=== PATIENT | female | born 1990 | race Caucasian/White ===

== ENCOUNTER 2019-05-18 18:37 | Observation (INO) ==
[2019-05-18] MEDS ORDERED: ZOFRAN IV ONE (18:47)
--- NOTE | 2019-05-18 18:59 | PROVIDER DOCUMENTATION ---
HPI-Female /OB/Breast - General Chief Complaint: Female Stated Complaint: BLEEDING--12 WEEKS Time Seen by Provider: 05/18/19 18:45 Source: reports: patient, family Allergies/Adverse Reactions: Patient Allergies Allergy/AdvReac Type Severity Reaction Status Date / Time No Known Allergies Allergy Verified 03/10/19 21:02 Home Medications: Home Medication List Medication Instructions Recorded Confirmed Last Taken Type Hydralazine [Apresoline] 10 mg PO TID #21 tablet 12/09/17 Unknown Rx Ondansetron Odt [Zofran 8Mg Odt] 8 mg PO Q8H PRN PRN #10 tablet 12/09/17 Unknown Rx Ketorolac [Toradol] 10 mg PO Q6H PRN PRN #14 tab 03/10/19 Unknown Rx Ketorolac [Toradol] 10 mg PO Q6H PRN PRN #14 tab 05/18/19 Unknown Rx - History of Present Illness-Female /OB Nature of Presenting Problem: [id number] presents to the ER with vaginal bleeding. She reports she is approx 12 weeks . She reports she has had moderate cramping all day, then just [employer] ARCHITECT, she began "gushing blood". She reports heavy bleeding, tissue and blots. Patient has a bloody towel tucked between her legs with a moderate amount of bright red blood noted. at the bedside. She is upset and vomiting. Does patient report she is ?: Yes Quality of Pain: reports: cramping Onset/Duration: reports: this morning Related Symptoms: reports: vaginal bleeding Leakage of Fluid: heavy gush Review of Systems - Adult - REVIEW OF SYSTEMS - ADULT Constitutional: reports: see HPI. denies: chills, fever Eyes: reports: no symptoms reported Ears, Nose, Mouth & Throat: reports: no symptoms reported Cardiovascular: reports: no symptoms reported Respiratory: reports: no symptoms reported Gastrointestinal: reports: see HPI, abdominal pain, nausea Genitourinary: reports: see HPI Musculoskeletal: reports: no symptoms reported Integumentary: reports: no symptoms reported Neurological: reports: no symptoms reported Psychiatric: reports: no symptoms reported Endocrine: reports: no symptoms reported Hematologic/Lymphatic: reports: no symptoms reported Allergic/Immunologic: reports: no symptoms reported All Other Systems: Reviewed and Negative Past History - Adult - PAST MEDICAL HISTORY-ADULT Review of Records: reports: Old Records Reviewed, Nursing Assessment Review, Medications Reviewed, Social history reviewed & non-contributory. Major Childhood Illnesses: reports: denies history Cardiovascular: reports: denies history Respiratory: reports: denies history Gastrointestinal: reports: denies history Obstetrical/Gynecological: reports: denies history Genitourinary: reports: denies history Musculoskeletal: reports: denies history Neurological: reports: denies history Psychiatric: reports: denies history Endocrine/Immune: reports: denies history Other Conditions: reports: denies history - PRIOR SURGERIES/PROCEDURES Surgical/Procedure History: reports: reviewed, not pertinent - IMMUNIZATION STATUS Childhood Immunizations: See Nurse Assessment Flu Vaccine: See Nurse Assessment - FAMILY HISTORY Family History: reviewed, not pertinent - SOCIAL HISTORY Smoking: denies Substance Use: denies Living Situation: family Physical Exam-General - PHYSICAL EXAM-ADULT Initial Vital Signs Reviewed: Yes - CONSTITUTIONAL General Appearance: alert, moderate distress - HEAD, EARS, NOSE, MOUTH & THROAT HENMT: moist mucous membranes, TMs normal - NECK Neck: full range of motion, supple - GASTROINTESTINAL (ABDOMEN) Abdominal Exam: non tender, soft - GENITOURINARY Female Genitalia/Pelvic Exam: active bleeding, blood - MUSCULOSKELETAL Extremity: normal gait - SKIN Integumentary: warm/dry - PSYCHIATRIC Psych/Mental Status: anxious, depressed affect, tearful Progress - PLAN OF CARE/RESULTS Progress/Plan/Lab Results: Vital Signs - 8 hr 05/18/19 18:40 Temperature 97.8 F Pulse Rate 89 Respiratory Rate 18 Blood Pressure 92/60 O2 Sat by Pulse Oximetry 98 Laboratory Results - last 24 hr 05/18/19 05/18/19 05/18/19 20:23 20:23 20:23 WBC 17.70 H RBC 3.98 L Hgb 11.2 L Hct 35.1 L MCV 88.2 MCH 28.1 MCHC 31.9 L RDW Std Deviation 13.3 Plt Count 264 MPV 10.3 Immature Gran % (Auto) 0.3 Neut % (Auto) 83.1 H Lymph % (Auto) 12.2 L Loup % (Auto) 4.0 Eos % (Auto) 0.2 Baso % (Auto) 0.2 Immature Gran # (Auto) 0.05 H Neut # (Auto) 14.73 H Lymph # (Auto) 2.16 Loup # (Auto) 0.70 H Eos # (Auto) 0.03 Baso # (Auto) 0.03 Sodium 141 Potassium 4.0 Chloride 104 Carbon Dioxide 23 L Anion Gap 14 BUN 7 L Creatinine 0.6 Estimated GFR/1.73 m2 > 60 BUN/Creatinine Ratio 12 Glucose 135 H Calculated Osmolality 281 Calcium 8.1 L Total Bilirubin 0.22 AST 12 ALT 10 Alkaline Phosphatase 52 Total Protein 6.2 L Albumin 3.6 Globulin 2.6 Albumin/Globulin Ratio 1.4 Ser , Semi-Qnt 1317.0 Blood Type Antibody Screen 05/18/19 20:23 WBC RBC Hgb Hct MCV MCH MCHC RDW Std Deviation Plt Count MPV Immature Gran % (Auto) Neut % (Auto) Lymph % (Auto) Loup % (Auto) Eos % (Auto) Baso % (Auto) Immature Gran # (Auto) Neut # (Auto) Lymph # (Auto) Loup # (Auto) Eos # (Auto) Baso # (Auto) Sodium Potassium Chloride Carbon Dioxide Anion Gap BUN Creatinine Estimated GFR/1.73 m2 BUN/Creatinine Ratio Glucose Calculated Osmolality Calcium Total Bilirubin AST ALT Alkaline Phosphatase Total Protein Albumin Globulin Albumin/Globulin Ratio Ser , Semi-Qnt Blood Type A POSITIVE Antibody Screen NEGATIVE Orders Category Date Time Status Saline Loc NOW Care 05/18/19 18:46 Active US TRANSVAGINAL OB [US] Stat Exams 05/18/19 18:46 Completed CBC WITH ELECTRONIC DIFF [HEME] Stat Lab 05/18/19 20:23 Completed CMP [COMPREHENSIVE METABOLIC PANEL] [CHEM] Stat Lab 05/18/19 20:23 Completed CYTOLOGY NON VETERINARY LABORATORY TECHNICIAN BODY FLUID Stat Lab 05/18/19 19:56 Ordered QUANT TEST Stat Lab 05/18/19 20:23 Completed TYPE & SCREEN [BBK] Stat Lab 05/18/19 20:23 Completed 0.9% Sodium Chloride Inj [Ns] 1,000 ml Med 05/18/19 20:18 Discontinued IV 999 mls/hr Hydrocodone/APAP 10 mg/325 mg [Stirum-10] Med 05/18/19 21:24 Discontinued 1 each PO NOW ONE Morphine Med 05/18/19 20:18 Discontinued 4 mg IV NOW ONE Ondansetron [Zofran] Med 05/18/19 18:47 Discontinued 4 mg IV NOW ONE I have spoken to Dr Schwab in regards to POC. He agrees with POC. VSS. H/H is stable. Pain is manageable per the patient. Patient reports she has an appt in the morning with her OB. She understands to keep the appt and follow up. patient and verbalize an understanding of POC and agree with treatment rendered here today. Result Diagrams: 05/18/19 20:23 05/18/19 20:23 - REASSESSMENT Reassessment #1 Time Reassessed: 20:19 Status: unchanged (US reports large amount of blood and tissue came out during exam. once patient was back in room, she c/o abd cramping.) Reassessment #2 Time Reassessed: 21:34 Status: improving (bleeding has slowed, pt is still experiencing abdominal cramping. meds given.) - ULTRASOUND (By Radiology) 1 US Study: Transvaginal Impression: Abnormal ( COMMENT: The endometrial stripe is somewhat inhomogeneous and thickened measuring 2.5 x 3.2 cm. The possibility of retained membranes cannot be excluded. No viable intrauterine gestation is demonstrated. There is no evidence of free fluid. The ovaries are not enlarged. There are no previous studies. IMPRESSION: No evidence of viable gestation. The possibility of a spontaneous in progress is suggested.) Departure - Departure Date of Disposition Decision: 05/18/19 Time of Disposition Decision: 21:37 DIAGNOSIS: Miscarriage Disposition: HOME 01 Certified Medical Emergency: Emergent Condition: Stable Additional Instructions: Follow up with OB in the morning. Return to the ER for any dizziness, SOB, CP, Increase in bleeding. ED Follow Up Instructions: You have been treated by a care provider in the Emergency Department. These instructions are being provided to you so you can have an understanding of how to care for yourself upon discharge. Upon discharge from the Emergency Department, you are responsible for making arrangements for follow-up care by a physician of your choice. Take all prescribed medications as directed. Return to the Emergency Department immediately for any new or worsening symptoms. You may call the Physician Referral phone number at [phone] to obtain a list of Physicians who are taking new patients. Prescriptions: Ketorolac [Toradol] 10 mg PO Q6H PRN PRN #14 tab PRN Reason: Pain Referrals and Follow-Ups: Urmila Baker MD [Primary Care Provider] - Work Excuses: Return to School/Parent Work Discharge Education: Miscarriage - Critical Care Note This patient required my direct & personal management of CC.: No Attestation - Physician/ DONTA Attestation Patient care was provided by Advanced Practice Provider:: Yes Advanced Practice Provider:: Juan Alberto Goff Advanced Practice Provider documentation review:: The Mid-level provider documentation, treatment plan and medical decision making was reviewed by the physician who agrees with all treatment and medical decision making by the MLP. The physician spent face to face time with patient:: No Advanced Practice Provider documentation review:: Supervising physician onsite and consulted in the evaluation and care of this patient. The physician did not have a face to face encounter with the patient.
--- NOTE | 2019-05-18 20:06 | Diag Imaging Result Doc PS360 ---
EXAM: US TRANSVAGINAL OB 05/18/2019 HISTORY: heavy vaginal bleeding/cramping TECHNIQUE: Transabdominal and endovaginal scan COMMENT: The endometrial stripe is somewhat inhomogeneous and thickened measuring 2.5 x 3.2 cm. The possibility of retained membranes cannot be excluded. No viable intrauterine gestation is demonstrated. There is no evidence of free fluid. The ovaries are not enlarged. There are no previous studies. IMPRESSION: No evidence of viable gestation. The possibility of a spontaneous in progress is suggested. Electronically signed by Oscar Chacon 05/18/2019 8:04 PM
[2019-05-18] MEDS ORDERED: NS 1,000 ML IV ONE ×2 (20:18→22:37)
[2019-05-18] MEDS ORDERED: MORPHINE IV ONE (20:18)
[2019-05-18 20:49] LABS: BASO# 0.03 X1000 (0.0-0.2); BASO% 0.2 % (0.0-0.8); EOS# 0.03 X1000 (0.0-0.7); EOS% 0.2 % (0.0-10.0); HEMATOCRIT 35.1 % (37.0-47.0); HEMOGLOBIN 11.2 g/dL (12.0-16.0); IMM GRAN# 0.05 X1000 (0.0-0.04); IMM GRAN% 0.3 % (0.0-0.5); LYMPH# 2.16 X1000 (1.2-3.4); LYMPH% 12.2 % (20.5-51.1); MCH 28.1 PG (27-31); MCHC 31.9 g/dL (33-37); MCV 88.2 FL (81-99); MPV 10.3 FL (7.4-10.4); NEUT# 14.73 X1000 (1.4-6.5); NEUT% 83.1 % (42.2-75.2); PLT 264 X1000 (130-400); RBC 3.98 XMIL (4.2-5.4); RDW 13.3 % (11.5-14.5)
[2019-05-18 21:16] LABS: AGAP 14; ALB/GLOB RATIO 1.4; ALBUMIN 3.6 g/dL (3.5-5.0); ALKALINE PHOSPHATASE 52 U/L (32-104); BUN 7 mg/dL (8-22); CALCIUM 8.1 mg/dL (8.8-10.2); CHLORIDE 104 mmol/L (98-107); COSMO 281; CREATININE 0.6 mg/dL (0.5-0.9); ESTIMATED GFR > 60; GLUCOSE 135 mg/dL (70-104); GOT 12 U/L (10-30); GPT 10 U/L (10-36); SODIUM 141 mmol/L (136-145); TCO2 23 mmol/L (25-35); TOTAL BILIRUBIN 0.22 mg/dL (0.20-1.00); TOTAL PROTEIN 6.2 g/dL (6.3-8.3)
[2019-05-18] MEDS ORDERED: NORCO-10 PO ONE ×2 (21:24→21:40)
[2019-05-18] MEDS ORDERED: CYTOTEC PO ONE (22:36)
[2019-05-18 23:05] LABS: HEMATOCRIT 27.5 % (37.0-47.0); HEMOGLOBIN 8.6 g/dL (12.0-16.0)
[2019-05-18] MEDS ORDERED: BENADRYL IV ONE (23:30)
[2019-05-18] MEDS ORDERED: OFIRMEV 1000 MG/ISOTONIC SOLN 1,000 MG/100 ML BOTTLE IV ONE (23:31)
[2019-05-19] MEDS ORDERED: DIPRIVAN 1% ONE (00:13)
[2019-05-19] MEDS ORDERED: XYLOCAINE-MPF 2% ONE (00:15)
[2019-05-19] MEDS ORDERED: QUELICIN (DOSE) ONE (00:15)
[2019-05-19] MEDS ORDERED: METHERGINE ONE (00:42)
[2019-05-19] MEDS ORDERED: ZOFRAN ONE (00:50)
[2019-05-19] MEDS ORDERED: DECADRON ONE (00:50)
[2019-05-19] MEDS ORDERED: DOXYCYCLINE 200 MG in NS 250 ML IV ONE (01:00)
[2019-05-19] MEDS ORDERED: SILVER NITRATE APPLICATOR ONE ×2 (01:05→01:13)
[2019-05-19] MEDS ORDERED: NEO-SYNEPHRINE ONE (01:16)
[2019-05-19] MEDS ORDERED: SODIUM CHLORIDE 0.9% 10 ML ONE (01:16)
[2019-05-19] MEDS ORDERED: CHLORASEPTIC SPRAY MT ONE (02:00)
[2019-05-19] MEDS ORDERED: NORCO-5 PO PRN (02:51)
[2019-05-19] MEDS ORDERED: ZOFRAN IV PRN (02:51)
[2019-05-19] MEDS ORDERED: MOTRIN PO PRN (02:52)
--- NOTE | 2019-05-19 03:50 | HISTORY AND PHYSICAL ---
Short form H&P hand written for surgery, this is complete H&P. CHIEF COMPLAINT: Incomplete AB with continued vaginal bleeding and symptomatic anemia. HISTORY OF PRESENT ILLNESS: The patient is a 28-year-old G2, P1, female with EDC of 12/01/2019. She received her obstetric care through Dr. Galicia in [place] at [facility]. She was dated by an ultrasound at 8 weeks. She states that she has had spotting on and off for almost the entire just with wiping. She states that around 5:30 p.m. this evening she began to have cramping pain that was severe, and soon after that, heavy bleeding started. She came to the hospital here in [place] for evaluation due to the amount of bleeding she was having. Workup was done through the emergency room at [facility]. Ultrasound was obtained which revealed no gestational sac/ and read as spontaneous miscarriage in progress. Endometrial thickness at 2.5 cm cannot rule out retained products of conception. Per nurse practitioner, post ultrasound while in radiology she passed a large amount of tissue and the fetus. When back in the ER after the ultrasound, she passed more tissue that was placenta on visualization per nurse practitioner. The patient's bleeding and cramping had slowed down post and both tissue samples were sent to pathology. Hemoglobin and hematocrit at 8:23 p.m. came back 11 and 35 respectively. The ER was getting ready to discharge the patient home due to passing the tissue and the presumed placenta and her bleeding had slowed considerably. However when they sat her up, she became lightheaded, dizzy, and nauseated. No CP or SOB. Her blood pressure dropped to the 80s over 60s and patient was not comfortable unless she was lying down due to the orthostatic in nature of her symptoms. I was consulted by phone again at that time. Patient bleeding was minimal and had passed fetus as well as placenta per report. Recommended to recheck H and H. She did receive 1 L of IV fluids. I instructed Nurse practitioner to give 400 mcg of Cytotec with a small sip of water and to leave NPO status and would await the H and H. I received a call back from the emergency room stating that her BP was maintained in the 80s over 50s and her pulse was in the 70s to 80s. However, her H and H had dropped to 8 and 27 respectively by 10:30 p.m. Patient's bleeding also had returned and was heavy again and passing large clots. Discussed to call engine house helper as well as notify for surgical case to proceed with suction D and C for likely retained products due to continued bleeding and symptomatic anemia. The ER reports that her had gone out and bought her a hamburger. She "only had a couple bites of it." The nurse practitioner stated that she told the patient not to eat anything. 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 SURGICAL HISTORY: Tonsillectomy. ALLERGIES: Amoxicillin-rash, Zofran intolerance she reports causes headaches and does not work on her nausea. MEDICATIONS: vitamins and Bonjesta which she reports is a nausea and vomiting medication during . SOCIAL HISTORY: Tobacco use in past. States she quit in March of 2019. Started smoking at 21 years of age. She denies alcohol use and denies illicit drug use on direct questioning. FAMILY HISTORY: Paternal grandfather with pancreatic cancer and dad with asthma. OBSTETRIC HISTORY: G2, P1, status post spontaneous vaginal delivery 11/25/2017 of a female infant. She had no problems with or delivery, but states she had a eclamptic seizure 2 weeks . She was going to be starting aspirin daily tomorrow, and had a regular scheduled office visit for OB check tomorrow as well. PHYSICAL EXAMINATION: GENERAL: Alert and oriented x3. No acute distress. Upon having patient set up she became extremely dizzy stating "I can't do this." CARDIOVASCULAR: Regular rate and rhythm. Pulse at 78 on my check. LUNGS: Clear to auscultation bilaterally. ABDOMEN: Soft, mildly distended with some tympany in all quadrants. Nontender with palpation or percussion. No peritoneal signs with heel tap. No rebound or guarding. PELVIC: The patient is sitting in approximately 200 mL of blood and clot on the Chux pad with a trickle from the introitus noted. I deferred any internal exam as going to the OR. EXTREMITIES: No calf pain. No edema. Pedal pulses palpated bilaterally. LABORATORY DATA: Please see details in the HPI. ASSESSMENT: A 28-year-old G2, P1, status post spontaneous AB that is incomplete. Having continued vaginal bleeding and symptomatic anemia. Suspect retained POC. PLAN: 1. I discussed with the patient and her proceeding with suction D and C to remove any remaining tissue or clot that is continuing to cause bleeding. Risks and benefits of surgical procedure were discussed with the patient including the risk of anesthesia itself, as well as the risk of bleeding bleeding and infection associated with surgical procedure. I discussed that the surgical procedure is meant however to correct the underlying problem. Risks of continued severe bleeding exist if D&C is not done. I discussed other possible risks of surgery including perforation of the uterus during instrumentation, even though rare can occur. The patient stated understanding for the procedure itself and its possible risks. All questions were answered and informed consent was obtained and signed. 2. Symptomatic anemia having dropped from hemoglobin 11 and hematocrit 35 to 8 and 27 in approximately 2 hours. Began bleeding heavily again with clots post cytotec in ER. She was typed and crossed for 2 units, having started 1 unit in the emergency room after pretreatment with Tylenol and Benadryl. 3. Anesthesiologist Dr. Prasad notified of the patient as well as having "couple of bites of a hamburger." Okay for proceeding to the OR for Dr. Prasad. 4. The patient is A positive. No need for RhoGAM. cc: Jessica Fernando MD MTDD
--- NOTE | 2019-05-19 05:06 | OPERATIVE NOTE ---
PROCEDURE DATE: 05/19/2019 PREOPERATIVE DIAGNOSIS: Incomplete AB, continued vaginal bleeding with symptomatic anemia. POSTOPERATIVE DIAGNOSIS: Incomplete AB, continued vaginal bleeding with symptomatic anemia. PROCEDURE PERFORMED: Suction D C with 12 angled curette. SURGEON: Dr. Fernando. SENIOR QA ANALYST: None, but OR staff. ANESTHESIA: General endotracheal under the direction of Zandra Khoury CRNA, and Dr. Valentine Prasad. ESTIMATED BLOOD LOSS: Approximately 500 mL total noted in the OR, estimated at approximately 400 mL clot and blood on Chux, and removed from the vagina with tissue, as well as 100 mL in the suction canister. SPECIMENS: Products of conception to Pathology. COMPLICATIONS: None. CONDITION: Stable to PACU. INDICATIONS FOR PROCEDURE: The patient is a 28-year-old, G2, P1, female at approximately 12 weeks gestation dated by an 8-week ultrasound. She has had spotting on and off just with wiping throughout her per her report. She is followed by Dr. Baker in [place]. At approximately 5:30 p.m. on 05/18/2019 she began to have cramping and soon after that started bleeding heavily, so presented to the [facility] ER for evaluation. During that evaluation ultrasound was performed, which revealed a miscarriage in progress with no gestational sac or IUP noted. She ended up passing the baby and tissue per nursing report after the ultrasound exam, it was denoted a large amount of tissue and blood. She was brought back to the emergency room where she passed more tissue, what was described as the placenta per the nurse practitioner. Her bleeding and cramping had slowed after she passed this. She received a total of 0.5 L of IV fluids in the emergency room and had a hemoglobin reported at 11 and a hematocrit at 35 at 8:23 p.m. The emergency room was planning to discharge the patient as her bleeding had slowed and what was visualized as an AB in progress and ultrasound as well as passing tissue, fetus and presumably the placenta in the ER. Upon sitting the patient up to discharge her to home she felt lightheaded, dizzy and nauseated, and was found to be orthostatic with decrease in her pressures. Her pulse, however, while lying in bed was in the 70s to 80s, it was more symptomatic upon sitting up. I was called by the ER for consultation, and I discussed with them repeating H H to see how far down she had dropped as they were stating orthostatic with her blood pressures being symptomatic upon sitting up. Her bleeding, however, had slowed. I instructed to give 400 mcg of Cytotec with a small sip of water and leave NPO. Repeat H H returned that the patient had dropped down to a hemoglobin of 8 and hematocrit of 27. Blood pressures remained in the 80s over 50s, and pulse in the 70s to 80s, and the patient was still symptomatic. She started bleeding again and passing what appeared to be large clots in the emergency room and decision was made to proceed with a suction D and C. I arrived to evaluate the patient and she had a couple hundred milliliters of clot and blood on the Chux pad present. No peritoneal signs. No abdominal pain or tenderness. I discussed with the patient proceeding with suction D and C, and the risks and benefits of this procedure including bleeding and infection, as well as the risk of anesthesia itself. I also discussed the possibility of perforation although rare can occur. Due to the patient's symptomatic status and drop in blood pressure I did order a type and cross for 2 units for which she started receiving 1 unit of packed red blood cells in the ER prior to going to the operating room. The patient reported taking a couple of bites of a hamburger that her brought to her because she thought she was going to be able to go home. Dr. Prasad was okay with proceeding with case after talking with the patient regarding the couple of bites of hamburger that she did have. All questions were answered and informed consent was obtained and signed for proceeding with suction D and C. FINDINGS: Exam under anesthesia revealed an os that was dilated approximately 2 cm, soft and patulous in nature. There was tissue and placenta present within the os itself that was somewhat adherent. Approximately 400 mL of blood and clot on the Chux pad prior to prepping and draping, and 100 mL in suction canister. DESCRIPTION OF PROCEDURE: The patient was taken to the operating room where a time-out was performed. The patient was identified and the procedure was confirmed. Next, adequate general anesthesia was achieved. She was prepped and draped in the usual sterile fashion in the dorsal lithotomy position. 200mg Doxycycline IV started in OR. Next, a weighted speculum was placed. Red James catheter was used to drain the bladder of approximately 250 mL of clear yellow urine. Attempts were made at grasping manually the tissue that was present within the os, but somewhat adherent and fibrinated. Ring forceps were used to grasp and tease the tissue out, this was done x 2 with a large amount of tissue obtained approximately 4 cm worth of what appeared to be fragmented placental tissue, as well as the following piece of approximately 2 cm in nature. She was still continuing to have some bleeding through the os. I gently sounded the uterus to approximately 8 to 9 cm. Due to the diameter of the cervical opening due to tissue being present, a 12 angled curette was utilized, The 12 angled curette was gently introduced toward the uterine fundus, suction was applied, and a curette was gently rotated and tissue was obtained on the 1st pass. A 2nd pass with a suction curette was performed with the tissue again being obtained. On the 3rd pass no further tissue was obtained and no active bleeding was noted from the cervical os. A blunt banjo curette was then introduced with a gentle sampling of each of 4 quadrants to assure no further placental tissue remained, and there was none. Suction curette was passed 1 more time with no further obtainment of tissue. Where the tenaculum was placed on the anterior cervix there was some bleeding noted. Ring clamp was placed upon the cervix to see if this would stop the bleeding, it did not. Silver nitrate stick was utilized to see if this would stop the tenaculum site bleeding, and it has slowed it down but did not stop it. I did place a 2-0 Vicryl [id number] suture x2 with stopping of bleeding from the tenaculum site. No further active bleeding was noted. Methergine 0.2 mg IM was given in the OR, as well as the starting of the 2nd unit of packed red blood cells due to approximately 500 mL total between clot and blood prior to the start of the case, as well as 100 mL within the suction canister itself. She was taken to the recovery room in stable condition. She was hemodynamically stable throughout the case. She will be maintained for observation until the morning and repeat an H and H at 6 a.m., 4 hours after the 2nd unit. The patient is blood type A positive therefore does not need RhoGAM. cc: MD FROILAN Charles
[2019-05-19] MEDS: NORCO-5 PO PRN ×2 (05:14→12:06)
[2019-05-19 07:17] LABS: HEMATOCRIT 30.5 % (37.0-47.0); HEMOGLOBIN 10.2 g/dL (12.0-16.0)
[2019-05-19] MEDS ORDERED: PERIDEX MT SCH (09:00)
[2019-05-19] MEDS ORDERED: METHERGINE PO SCH (09:00)
--- NOTE | 2019-05-19 12:15 | PROVIDER PROGRESS NOTE ---
- Subjective Pt seen and examined. Pt is s/p D&C secondary to incomplete AB and hemodynamic instability. Pt received 2 units of pRBC and reports minimal bleeding now. Denies abdominal pain and tolerating a regular diet. Denies N/V. Ambulating and urinating without difficulty. Denies fever/chills Physical Exam Objective Vital Signs - 8 hr 05/19/19 04:00 05/19/19 04:30 05/19/19 05:20 Temperature 97.9 F Pulse Rate 72 76 82 Respiratory Rate 16 Blood Pressure 91/44 88/49 79/44 O2 Sat by Pulse Oximetry 97 05/19/19 05:23 05/19/19 08:07 05/19/19 08:37 Temperature 98.8 F 98.6 F Pulse Rate 75 67 82 Respiratory Rate 18 14 Blood Pressure 99/52 100/59 O2 Sat by Pulse Oximetry 97 97 - Constitutional General Appearance: appears well, alert, no apparent distress - RESPIRATORY Respiratory: lungs clear, normal breath sounds - CARDIOVASCULAR Cardiovascular: regular rate, rhythm - GASTROINTESTINAL (ABDOMEN) Abdominal Exam: soft (non tender) - GENITOURINARY Female Genitalia/Pelvic Exam: external exam normal (minimal spotting on carla- pad) - MUSCULOSKELETAL Extremity: non-tender, no calf tenderness - PSYCHIATRIC Psych/Mental Status: normal mood/affect, oriented x 3 Active Medications Generic Name Dose Route Start Last Admin Trade Name Freq PRN Reason Stop Dose Admin Hydrocodone Bitart/Acetaminophen 1 each 05/19/19 02:50 05/19/19 05:14 [place]-5 PO 1 each Q4H PRN PRN Administration PAIN 1-5 Hydrocodone Bitart/Acetaminophen 2 each 05/19/19 02:51 [place]-5 PO Q4H PRN PRN PAIN 6-10 Chlorhexidine Gluconate 15 ml 05/19/19 09:00 05/19/19 10:33 Peridex MT 15 ml BID TESFAYE Administration Ibuprofen 600 mg 05/19/19 02:52 05/19/19 08:08 Motrin PO 600 mg Q6H PRN PRN Administration CRAMPING PAIN Methylergonovine Maleate 0.2 mg 05/19/19 09:00 05/19/19 10:33 Methergine PO 0.2 mg Q8H TESFAYE Administration Ondansetron HCl 8 mg 05/19/19 02:51 Zofran IV Q8H PRN PRN Nausea Laboratory Results - last 24 hr 05/18/19 05/18/19 05/18/19 19:56 20:23 20:23 WBC 17.70 H RBC 3.98 L Hgb 11.2 L Hct 35.1 L MCV 88.2 MCH 28.1 MCHC 31.9 L RDW Std Deviation 13.3 Plt Count 264 MPV 10.3 Immature Gran % (Auto) 0.3 Neut % (Auto) 83.1 H Lymph % (Auto) 12.2 L [place] % (Auto) 4.0 Eos % (Auto) 0.2 Baso % (Auto) 0.2 Immature Gran # (Auto) 0.05 H Neut # (Auto) 14.73 H Lymph # (Auto) 2.16 [place] # (Auto) 0.70 H Eos # (Auto) 0.03 Baso # (Auto) 0.03 Sodium Potassium Chloride Carbon Dioxide Anion Gap BUN Creatinine Estimated GFR/1.73 m2 BUN/Creatinine Ratio Glucose Calculated Osmolality Calcium Total Bilirubin AST ALT Alkaline Phosphatase Total Protein Albumin Globulin Albumin/Globulin Ratio Ser , Semi-Qnt 1317.0 Non-Gen Cytology Smear REFERRED FOR TESTING Blood Type Blood Type Confirm Antibody Screen Crossmatch 05/18/19 05/18/19 05/18/19 20:23 20:23 22:45 WBC RBC Hgb Hct MCV MCH MCHC RDW Std Deviation Plt Count MPV Immature Gran % (Auto) Neut % (Auto) Lymph % (Auto) [place] % (Auto) Eos % (Auto) Baso % (Auto) Immature Gran # (Auto) Neut # (Auto) Lymph # (Auto) [place] # (Auto) Eos # (Auto) Baso # (Auto) Sodium 141 Potassium 4.0 Chloride 104 Carbon Dioxide 23 L Anion Gap 14 BUN 7 L Creatinine 0.6 Estimated GFR/1.73 m2 > 60 BUN/Creatinine Ratio 12 Glucose 135 H Calculated Osmolality 281 Calcium 8.1 L Total Bilirubin 0.22 AST 12 ALT 10 Alkaline Phosphatase 52 Total Protein 6.2 L Albumin 3.6 Globulin 2.6 Albumin/Globulin Ratio 1.4 Ser , Semi-Qnt Non-Gen Cytology Smear Blood Type A POSITIVE Blood Type Confirm A POSITIVE Antibody Screen NEGATIVE Crossmatch See Detail 05/18/19 05/19/19 22:45 05:50 WBC RBC Hgb 8.6 L D 10.2 L D Hct 27.5 L D 30.5 L MCV MCH MCHC RDW Std Deviation Plt Count MPV Immature Gran % (Auto) Neut % (Auto) Lymph % (Auto) [place] % (Auto) Eos % (Auto) Baso % (Auto) Immature Gran # (Auto) Neut # (Auto) Lymph # (Auto) [place] # (Auto) Eos # (Auto) Baso # (Auto) Sodium Potassium Chloride Carbon Dioxide Anion Gap BUN Creatinine Estimated GFR/1.73 m2 BUN/Creatinine Ratio Glucose Calculated Osmolality Calcium Total Bilirubin AST ALT Alkaline Phosphatase Total Protein Albumin Globulin Albumin/Globulin Ratio Ser , Semi-Qnt Non-Gen Cytology Smear Blood Type Blood Type Confirm Antibody Screen Crossmatch - Assessment & Plan (1) Incomplete Status: Resolved (2) S/P dilation and curettage Status: Resolved - Progress Note Disposition: Mrs. Alejandro is a 28yo s/ep D&C secondary to incomplete AB with HD instability. -s/p 2units of pRBC. HD stable. Hgb 8.6 to 10.2 -OOB to ambulation -regular diet -nausea meds prn -ibuprofen prn pain -plan for d/c home today and advised on f/u with OB provider in 1 week
[2019-05-19 12:17] VITALS: BP 109/53
== END 2019-05-19 14:40 | disposition home or self-care (01) ==
LOC: ED 18:37 → 4N 18:37
PROVIDERS: ADMIT Obstetrics & Gynecology; ATTEND Obstetrics & Gynecology